=== PATIENT | female | born 1980 | race Caucasian/White ===

== ENCOUNTER 2020-08-07 20:12 | Emergency (ER) | payer BC ==
[~2020-08-07 20:12] MED LIST: COLACE 100MG C100 MG PO; IBUPROFEN600 MG PO; LORTAB 5-325 M1 EACH PO; OMNICEF 300 MG300 MG PO; PRENATAL TABLE1 EAC1 PO
[2020-08-07 21:21] LABS: HEMOGLOBIN 12.1 gm/dl (12.3-15.3); RED BLOOD COUNT 3.89 M/UL (4.00-5.10); WHITE BLOOD COUNT 10.7 K/UL (4.5-11.0)
[2020-08-07 21:34] LABS: BUN/CREATININE RATIO 19 (0-10)
== END 2020-08-07 22:20 | disposition home or self-care (01) ==
LOC: ER1 20:12
PROVIDERS: Physician Assistant
DX: O20.0 Threatened abortion (principal); O99.281 Endocrine, nutritional and metabolic diseases complicating pregnancy, first trimester; E87.6 Hypokalemia; O09.521 Supervision of elderly multigravida, first trimester; Z88.0 Allergy status to penicillin; Z79.899 Other long term (current) drug therapy
CPT/HCPCS: 80048; 81001; 84702; 85025; 99284

== ENCOUNTER 2020-12-29 21:50 | Outpatient (CLI) | payer BC | END 2020-12-30 09:41 | disposition home or self-care (01) | LOC: GENOP 21:50 | DX: O46.93 Antepartum hemorrhage, unspecified, third trimester (principal); Z3A.33 33 weeks gestation of pregnancy | CPT/HCPCS: 81001; 96360; 96361; 96372; J0702 ==

== ENCOUNTER 2021-02-04 13:37 | Inpatient (IN) | payer BC ==
[~2021-02-04] VITALS: Ht 170.2 cm; Wt 107.5 kg
[2021-02-04 15:27] LABS: HEMOGLOBIN 9.7 gm/dl (12.3-15.3); RED BLOOD COUNT 3.85 M/UL (4.00-5.10); WHITE BLOOD COUNT 11.3 K/UL (4.5-11.0)
[2021-02-04 15:52] LABS: BUN/CREATININE RATIO 11 (0-10)
[2021-02-05] MEDS ORDERED: ZOFRAN 4 MG TAB4 MG PO (12:29)
[2021-02-05] MEDS ORDERED: FERROUS SULFAT325 M2 PO (12:29)
[2021-02-06 09:07] LABS: HEMOGLOBIN 7.9 gm/dl (12.3-15.3)
[2021-02-06 13:42] LABS: HEMOGLOBIN 8.2 gm/dl (12.3-15.3)
[2021-02-06 13:56] LABS: RED BLOOD COUNT 3.27 M/UL (4.00-5.10); WHITE BLOOD COUNT 14.2 K/UL (4.5-11.0)
[2021-02-06] MEDS ORDERED: IBUPROFEN600 MG PO (15:48)
== END 2021-02-07 14:42 | disposition home or self-care (01) | DRG 806 ==
LOC: ER1 13:37 → GENOP 13:37 → EDSTATUS 14:02 → OB 17:31
PROVIDERS: ADMIT Obstetrics & Gynecology
PROC: 4A1HXCZ Monitoring of Products of Conception, Cardiac Rate, External Approach (ICD-10-PCS; 2021-02-04)
PROC: 10E0XZZ Delivery of Products of Conception, External Approach (ICD-10-PCS; principal; 2021-02-05)
PROC: 10907ZC Drainage of Amniotic Fluid, Therapeutic from Products of Conception, Via Natural or Artificial Opening (ICD-10-PCS; 2021-02-05)
PROC: 0HQ9XZZ Repair Perineum Skin, External Approach (ICD-10-PCS; 2021-02-05)
DX: O13.4 Gestational [pregnancy-induced] hypertension without significant proteinuria, complicating childbirth (principal); O99.354 Diseases of the nervous system complicating childbirth; Z37.0 Single live birth; Z20.822 Contact with and (suspected) exposure to COVID-19; R47.01 Aphasia; G43.109 Migraine with aura, not intractable, without status migrainosus; Z3A.38 38 weeks gestation of pregnancy; O70.0 First degree perineal laceration during delivery; O99.02 Anemia complicating childbirth; H54.61 Unqualified visual loss, right eye, normal vision left eye; D50.9 Iron deficiency anemia, unspecified; Z88.0 Allergy status to penicillin
CPT/HCPCS: 36415; 70450; 80053; 81001; 82570; 82800; 83615; 84156; 84550; 85014; 85018; 85025; 86850; 86900; 86901; J2590; U0002; U0003

== ENCOUNTER → 2021-09-28 | Outpatient (CLI) | payer BC ==
[~2021-09-28] MED LIST changes: +FERROUS SULFAT325 M2 PO; +ZOFRAN 4 MG TAB4 MG PO
== END ==
LOC: US 14:00
DX: Z53.9 Procedure and treatment not carried out, unspecified reason (principal)
CPT/HCPCS: 93971